=== PATIENT | female | born 1960 | race Caucasian/White ===

== ENCOUNTER → 2021-07-21 11:10 | Outpatient (CLI) | payer OTHER, SELFPAY ==
[2021-07-21 13:57] LABS: COVID19 -Nasal RAPID Negative (Negative)
== END ==
PROVIDERS: Visit Provider Family Medicine Sleep Medicine
DX: Z20.822 Contact with and (suspected) exposure to COVID-19 (principal)
CPT/HCPCS: 87635; C9803

== ENCOUNTER → 2021-07-30 10:46 | Outpatient (CLI) | payer OTHER, SELFPAY ==
[2021-07-30 12:21] LABS: COVID19 -Nasal RAPID Negative (Negative)
== END ==
PROVIDERS: Visit Provider Family Medicine Sleep Medicine
DX: Z20.822 Contact with and (suspected) exposure to COVID-19 (principal)
CPT/HCPCS: 87635; C9803

== ENCOUNTER 2021-08-01 08:30 | Day surgery (SDC) | payer OTHER, SELFPAY ==
[2021-07-25 07:38] VITALS: BMI 44.9
[2021-08-01] VITALS (16 sets, daily range): BP systolic 123–191; BP diastolic 67–103; PULSE 61–104; RESP 12–20; TEMP 36.2–37.3; O2SAT 94–99; BMI 44.9
[2021-08-01] MEDS: LACTATED RINGERS 1,000 ML 42 ML IV ×2 (08:54→12:16)
[2021-08-01] MEDS: PREGABALIN 75 MG CAPSULE PO (08:55)
[2021-08-01] MEDS: ACETAMINOPHEN 325 MG TABLET 975 MG PO ×3 (08:55→20:37)
[2021-08-01] MEDS: CELECOXIB 200 MG CAPSULE PO (08:57)
--- NOTE | 2021-08-01 09:35 | PM.HP.1 ---
History of Present Illness History of Present Illness Date Patient Seen: 08/01/21 Time Patient Seen: 09:35 Chief complaint: OPB Narrative: The patient is a 60-year-old woman with a history of right knee pain that has not responded to non operative measures. She has previously been scheduled for a total knee replacement. Her history and physical is out of date. This is an update history and physical. The patient confirms our a been no substantive changes in her history or health status. Patient History Medical History Diabetes Diverticulosis GERD (gastroesophageal reflux disease) HLD (hyperlipidemia) HTN (hypertension) BARBIE on CPAP Osteoarthritis Surgical History History of 2 sections History of bilateral tubal ligation Hx of colonoscopy Hx of tonsillectomy Family & Social History Social History: household members spouse Prior Living Arrangements House Safety & Behavioral: Feels Safe in Current Yes Environment Been Physically Hurt or No Threatened By a Person Suicidal Ideation Description None Suicide Plan Description No Plan Tobacco & Substance use: Smoking Status Never smoker alcohol intake current alcohol intake frequency a few times a week Substance Use Type does not use,other Meds Home Medications and Allergies Home Medications Medication Instructions Recorded Confirmed Type hydrochlorothiazide 25 mg tablet 25 mg PO QDAY #0 04/15/12 08/01/21 History ibuprofen 200 mg tablet 800 mg PO TID #0 04/15/12 08/01/21 History lisinopril 40 mg tablet (Zestril) 40 mg PO QDAY #0 04/15/12 08/01/21 History acetaminophen 500 mg tablet 1,000 mg PO TID 07/22/21 08/01/21 History amlodipine 2.5 mg tablet 2.5 mg PO DAILY 07/22/21 08/01/21 History atorvastatin 40 mg tablet 40 mg PO DAILY 07/22/21 08/01/21 History fexofenadine 180 mg tablet 180 mg PO DAILY 07/22/21 08/01/21 History magnesium oxide 400 mg PO DAILY 07/22/21 08/01/21 History Allergies Allergy/AdvReac Type Severity Reaction Status Date / Time aspirin AdvReac Unknown STOMACH Verified 08/01/21 08:49 HSIEH Review of Systems Review of Systems Narrative: She confirms she is in her normal state of health. Exam Vital Signs (past 8 hours): - 08/01/21 09:09 Temperature 97.7 F Pulse Rate 80 Respiratory Rate 20 Blood Pressure 191/103 H Pulse Oximetry 96 Oxygen Delivery Method Room Air Narrative Exam Narrative: The patient is lying comfortably in her hospital [facility]. Chest is clear to auscultation. Cardiac exam is regular rate and rhythm. Abdomen is soft nontender. Extremities examination for the root right knee is unchanged from her prior documentation. Assessment & Plan Assessment & Plan narrative: Right knee osteoarthritis. This has failed non operative measures and the patient is here today for right total knee replacement. The risks benefits and alternatives were reviewed with her once again. COVID-19 COVID-19 status: Negative Result date/Date tested (Pos, Neg/Pending): 07/30/21 Time Spent With Patient Critical Care time: I spent a total of [] minutes of critical care time on this patient's care today; this time is exclusive of procedural time.
--- NOTE | 2021-08-01 09:50 | PM.OP.1 ---
Operative Date/Time/Diagnoses Date of procedure: 08/01/21 Time of procedure: 12:14 Pre-op diagnosis: Right knee osteoarthritis Post-op diagnosis: same Procedure & Clinicians Procedure: Right total knee replacement Same procedure as scheduled: Yes Indications: The patient has had progressively worsening right knee pain with radiographic changes consistent with arthritis. Non-operative management has failed and the patient has requested total knee replacement. The risks, benefits and alternatives to surgery were discussed with the patient prior to proceeding. Risks discussed included, but were not limited to, failure to relieve pain, stiffness, infection, nerve damage, deep venous thrombosis, pulmonary embolism, stroke, coma, heart attack, permanent paralysis and , as well as the potential need for eventual revision of the prosthetic. Surgeon: Mahendra Paez Ceramics Technician: Laury Molina Yes if Unassisted: No Anesthesia Type: General, Spinal and Local Operative Notes Findings: Severe tricompartmental osteoarthritis with extensive erosion of cartilage and bone and an inflammatory component as well. Closure Type: primary Specimen(s): none sent Prosthetic devices, grafts, tissues, transplants, or devices: Implants used in this procedure were manufactured by the [employer] and included the BCS II Journey total knee replacement with a size 5 right Oxinium femoral component, a size 4 right non porous tibial base plate, a 15 mm cross-linked polyethylene tibial insert and a 35 mm oval Jessica II patella. Applied: implant(s) Estimated Blood Loss (mL): 25 Blood products transfused: none Tourniquet time (min): 57 Procedure in detail: The patient was seen in the pre-operative area, where the patient identified the right knee as the operative site and this was marked with my initials. The patient received pre-operative antibiotics, and was taken to the operating room and placed on the operative table in the supine position. After satisfactory anesthesia, a night time nanny out was performed. The right leg was encircled with a tourniquet about the proximal thigh, and the leg was prepared from the toes to the tourniquet with ChloroPrep in the usual fashion and draped through sterile drapes. The leg was elevated and exsanguinated with Eschmark bandage and the tourniquet inflated to 250 mmHg pressure. The knee was approached through an approximately 18 cm incision centered over the patella and carried into the knee through a medial parapatellar arthrotomy. The anterior osteophytes and soft tissues were removed. The rotational landmarks of Ryan's line and the transepicondylar axis were marked on the femur with electrocautery, and intramedullary guide holes for the femur and tibia were created. The distal femoral cut was made in 6 degrees of valgus using the intramedullary guide at the +2 cut setting due to a significant preoperative flexion contracture. The anterior, posterior and chamfer cuts were then made. The proximal tibial cut was then made using the intramedullary guide, taking 9 mm of bone off the less involved side, although this was difficult to determine due to the extensive erosion of the tibia both medially and laterally. Posterior osteophytes and soft tissues were then removed. The posterior capsule was injected with part of a mixture of 60 ml 0.25% Marcaine mixed with 20 ml Exparel and 4 mg of morphine for post-operative pain control. The remainder of this mixture was injected into the capsule and subcutaneous tissues during cement curing. The tibia was prepared with the rotation set by an extra medullary guide. Trial tibial and femoral components were then placed and the intercondylar notch cut through the femoral trial. Range of motion was 0-120 degrees with further flexion limited by the patient's obesity causing an anterior drawer on her tibia. A thicker than normal tibial insert was necessary in due to the difficulty measuring the tibial cut. A 15 mm insert was used. Stability was good throughout the range. The patella was then cut to accommodate the patellar prosthetic. There was no need for a lateral release. The trials were then removed, and the femoral hole plugged with a bone plug. The bone was prepared with pulsatile lavage, and dried with a sponge. Cement was applied and the final prosthetics placed. Excess cement was removed during and after cement curing. After confirming there was no extruded cement posteriorly, the final tibial insert was placed. The knee was copiously irrigated and the tourniquet deflated. Hemostasis was obtained. The capsule was closed with interrupted # 2 polyester suture. The subcutaneous layer was closed with 3-0 Vicryl, and the skin with a running 3-0 V-Lock suture and Dermabond. An Aquacel Ag dressing was applied and the patient was taken to recovery having tolerated the procedure well. Post-operative Condition: stable Disposition: PACU Plan for aftercare: The patient will be maintained on a standard total knee replacement protocol with weight bearing as tolerated. The patient will receive aspirin and sequential compression devices for DVT prophylaxis. The patient will be discharged home when safe for the home environment.
--- NOTE | 2021-08-01 10:11 | SUR.OPER ---
Supine on padded OR bed. Pillow under head, arms secured on padded armboards <90 degree abduction. Safety belt across torso. Non-operative leg secured with tape over blanket over lower leg. Operative leg secured in DeMayo/Alex/Nathe positioner. Foam padded brace at thigh of operative leg.
[2021-08-01] MEDS: CEFAZOLIN 2 GM/20 ML SYRINGE IV (10:40)
[2021-08-01] MEDS: TRANEXAMIC ACID 1,000 MG VIAL 1000 MG INJ ×2 (10:40→11:54)
--- NOTE | 2021-08-01 11:00 | DI.RAD.S_ITS ---
PROCEDURE: XR KNEE RT 1TO2V INDICATIONS: Postop knee arthroplasty. TECHNIQUE: 2 view(s) of the knee acquired. COMPARISON: [facility] [place], FADY, XR KNEE ARTHRITIC SERIES , 05/15/2021, 14:29. FINDINGS: Bones: Patient is status post knee joint arthroplasty. Hardware components are in expected positions. Visualized bony structures are intact. Soft tissues: Overlying postoperative changes are noted. IMPRESSION: Expected immediate postoperative appearance of right TKA. Dictated by: Enrico Adams [facility] Interpreted: Scott Olson MD on 08/01/2021 at 13:38 Transcribed by: HERMILO on 08/01/2021 at 13:38 Approved by: Scott Olson M.D. on 08/01/2021 at 17:14
[2021-08-01] MEDS: BUPIVACAINE 0.25% (PF) 60 ML, EPINEPHrine 0.3 MG INJ (11:01)
[2021-08-01] MEDS: BUPIVACAINE LIPOSOME 266 MG/20 ML VIAL INJ (11:02)
[2021-08-01] MEDS: MORPHINE 4 MG/ML INJ INJ (11:02)
[2021-08-01] MEDS: IBUPROFEN 200 MG TABLET 800 MG PO ×2 (14:39→20:37)
[2021-08-01] MEDS: hydrOXYzine pamoate 25 MG CAPSULE PO (14:39)
[2021-08-01] MEDS: LACTATED RINGERS 1,000 ML 100 ML IV (14:41)
[2021-08-01] MEDS: OXYCODONE IR 5 MG TABLET PO ×2 (14:43→20:37)
--- NOTE | 2021-08-01 16:30 | PT.IIE ---
Current Diagnoses Unilateral primary osteoarthritis, right knee (08/01/21) Surgery Performed Operation Date: 08/01/21 10:15 Actual Procedures p Total Knee Arthroplasty(Right) - Mahendra Paez MD Medical History (Last Reviewed 08/01/21 @ 09:36 by Mahendra Paez MD) Diabetes Diverticulosis GERD (gastroesophageal reflux disease) HLD (hyperlipidemia) HTN (hypertension) BARBIE on CPAP Osteoarthritis Physical Therapy Inpatient Evaluation/Re-Eval M1 PT/OT-IP Prior Functional Status Start: 08/01/21 17:34 Freq: NEEDED Status: Active Protocol: Document 08/01/21 16:30 AB (Rec: 08/01/21 17:44 AB [id number]) Medical Review Prior Functional Status Medical History Reviewed Yes Communication able to make needs known Mobility and Gait pt stated that she is independent with all mobilities and ambulation without AD Social History Household Members spouse Living Arrangements House Number of Floors (Floors) Two Floors Number of Stairs To Enter/Railing? 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 pt has a toilet safety frame pt plans to sleep on her lift chair M2 PT-IP Current Condition Start: 08/01/21 17:34 Freq: NEEDED Status: Active Protocol: Document 08/01/21 16:30 AB (Rec: 08/01/21 17:44 AB [id number]) Physical Therapy Current Condition Current Condition Evaluation Date 08/01/21 Treatment Diagnosis s/p R TKA; difficulty in walking Onset Date 08/01/21 M3 PT-IP Subjective Start: 08/01/21 17:34 Freq: NEEDED Status: Active Protocol: Document 08/01/21 16:30 AB (Rec: 08/01/21 17:44 AB [id number]) Subjective Physical Therapy Visit Type Type Initial Evaluation Visit Start Time 16:30 Visit Stop Time 17:05 Total Visit Minutes 35 Number of SYSTEM SUPPORT ANALYST Visits 0 Therapy Pain Assessment Pain When Pain Assessed At Rest Pain Present Pain Present Pain Reported Location Right Knee Intensity 5 Scale Used increases to 7-8/10 with mobility Pain Management Techniques Apply Cold,Distraction, Elevation,Modification of Treatment,Re-positioning, Timing of Activity with Medications M4 PT-IP Mobility and Gait Start: 08/01/21 17:34 Freq: NEEDED Status: Active Protocol: Document 08/01/21 16:30 AB (Rec: 08/01/21 17:44 AB [id number]) PT-Bed Mobility Assessment Sit to Supine Sit to Supine Standby Assistance PT-Transfer Assessment Sit to and From Stand Sit to and from Stand Contact Guard Assistance,1 Person Assistance Equipment Transfer Assistive Device Gait Belt,Front Wheeled Walker Orthotic/Prosthetic Devices or Brace: No Transfers Transfer Destination Bed Transfer Technique Stand Step Pivot Transfer Ability Level of Assist Minimal Assistance,1 Person Assistance,Use of Upper Extremities Comments Mobility Comments pt up on bedside commode with nurse. PT took over care. pt completed sit to stand from bedside commode CGA and was able to maintain standing balance CGA while managing brief. completed step transfer to EOB using FWW min A. pt wants to walk in the hallway. completed sit to stand from EOB CGA and ambulated ~ 100 ft using FWW min A and cues. c/ o increase pain midway ambulation with increase antalgic gait and slower pace. pt wants to go back to bed and completed sit to supine SBA. positioned pt in bed. call light and table placed within reach. ice pack provided. Gait Assessment Gait Gait Assistance Required: Minimum Assistance Distance (Feet) 100 Able to Maintain Weight Bearing Status Yes During Gait Assistive Devices Assistive Device Gait Belt,Front Wheeled Walker Orthotic/Prosthetic Devices or Brace: No Gait Deviations General Gait Pattern Antalgic,Decreased Stride Length,Decreased Feet Clearance,Step-to Gait Factors Limiting Gait Function Factors Limiting Gait Function Decreased Activity Tolerance, Decreased Strength,Limited Range of Motion,Pain,Poor Balance,Poor Safety Awareness PT-Balance Assessment Sitting Balance and Reactions Static Sitting Balance Ability Good Dynamic Sitting Balance Ability Good Standing Balance and Reactions Static Standing Balance Ability Fair Dynamic Standing Balance Ability Fair Device Used FWW M5 PT-IP Objective Assessments Start: 08/01/21 17:34 Freq: NEEDED Status: Active Protocol: Document 08/01/21 16:30 AB (Rec: 08/01/21 17:44 AB [id number]) Orientation Orientation/Cognition Level of Alertness Alert Orientation Name,Place,Situation Language Function Ability No Deficits Noted Safety Awareness Understands Safety Issues Memory Description No Deficits Noted Strength Lower Extremity Strength Assessment Right Impaired Knee 3+/5 Coordination Assessment Gross Coordination Gross Coordination WNL Sensation Assessment Sensation Gross Sensation WNL Muscle Tone Muscle Tone WNL Yes M6 PT-IP Treatment Start: 08/01/21 17:34 Freq: NEEDED Status: Active Protocol: Document 08/01/21 16:30 AB (Rec: 08/01/21 17:44 AB [id number]) Physical Therapy Treatment Education Education Provided Precautions,Weight Bearing Status,Post-Op Packet,Safety M7 PT-IP Assessment and Plan Start: 08/01/21 17:34 Freq: NEEDED Status: Active Protocol: Document 08/01/21 16:30 AB (Rec: 08/01/21 17:44 AB [email or web address]) PT Summary Assessment and Plan Potential Rehabilitation Potential Good Status of Condition at Evaluation Evolving Summary Impairments Pain,ROM,Strength,Balance, Coordination,Sensation,Tone, Cognition,Bed Mobility, Transfers,Gait,Activity Tolerance Assessment Summary pt requiring min A with mobility using FWW. c/o increase R knee pain with mobility. Pt plans to go home with spouse to assist and caregiver training will be conducted when appropriate. will also complete stair training prior to d/c. will continue to assess progress. Goals Bed Mobility Goal Independent Transfer Goal Independent,Front Wheeled Walker,Four Wheeled Walker Gait Goal Independent,Front Wheel Walker ,Four Wheel Walker Gait Distance 200 Other Goals up/down 3 steps R rail ascending SBA Days to Meet Goals 5 Frequency of Treatment Frequency Of Treatment Twice a Day Treatment Plan Physical Therapy Treatment Plan Bed Mobility Training,Transfer Training,Gait Training, Therapeutic Exercise,Balance Retraining,Post Op Education, Discharge Planning,Hot or Cold Pack,Neuromuscular Re-ed, Coordination Retraining,Manual Therapy Weight Bearing Status Weight Bearing Status Weight Bear as Tolerated Allowed Weight Bearing Amount (enter % RLE WBAT or #) (%) Recommendations To Nursing Amount of Assist Needed 1 Person Assist Discharge Recommendations PT Discharge Recommendations Home with Assistance, Outpatient PT Equipment Needed for Home Before FWW if not safe with 4WW Discharge Transportation Needs at Discharge Private Vehicle
[2021-08-01] MEDS: HYDROMORPHONE 2 MG TABLET PO ×2 (17:05→22:34)
[2021-08-01] MEDS: OXYCODONE IR 10 MG TABLET PO (17:35)
--- NOTE | 2021-08-01 19:21 | PC.NURSE ---
Pt arrived from PACU alert, pleasant and talkative. Initially reports numbnes to BLE's as the evening goes on she has almost complete sensation returned to baseline. She is able to ambulate with PT and use the BSC for x2 large voids. After PT and blocking agent wearing off she reports increasing paint to R knee to 7-9/10 pain. PRN medications given with good effect. She tolerates dinner well. VSS, afebrile on RA. She achieves 2400 on her IS. Dario wrap dressing C/D/I +CMS to toes. RT notified for assistance with CPAP machine this evening. Continuous monitoring.
[2021-08-01] MEDS: DOCUSATE 100 MG CAPSULE PO (20:37)
[2021-08-01] MEDS: ASPIRIN EC 81 MG TABLET PO (20:37)
--- NOTE | 2021-08-01 22:24 | PC.NURSE ---
Patient is alert and oriented. Breath sounds CTA with RA sat of 94%. HRR and BP elevated at 156/78; does trend high. Denied nausea. BT present and is passing flatus. Voiding on BSC; denied dysuria, frequency or urgency but has some difficulty completely emptying bladder. Able to move self in bed. Up to BSC with walker and 1 assist. Aquacel dressing covered with krista wrap to right knee is CDI. Complains of pain in right thigh and posterior knee and was medicated earlier with oxycodone and is keeping ice packs to knee for comfort. Wearing bilateral calf SCD's. Fall risk score is high and bed alarm is activated. CMS is intact except for slight numbness of anterior right foot and has difficulty lifting leg off bed.
[2021-08-02] VITALS (7 sets, daily range): BP systolic 120–158; BP diastolic 51–80; PULSE 60–71; RESP 17–18; TEMP 36.3–36.9; O2SAT 94–98
[2021-08-02] MEDS: OXYCODONE IR 10 MG TABLET PO ×4 (01:21→11:48)
[2021-08-02 05:47] LABS: Hematocrit 32.7 % (36-46); Hemoglobin 11.3 g/dL (12.0-16.0)
[2021-08-02] MEDS: IBUPROFEN 200 MG TABLET 800 MG PO ×3 (09:00→20:16)
[2021-08-02] MEDS: ATORVASTATIN 20 MG TABLET 40 MG PO (09:01)
[2021-08-02] MEDS: MAGNESIUM OXIDE 400 MG TABLET PO (09:01)
[2021-08-02] MEDS: hydroCHLOROthiazide 25 MG TABLET PO (09:01)
[2021-08-02] MEDS: lisinopriL 20 MG TABLET 40 MG PO (09:01)
[2021-08-02] MEDS: ACETAMINOPHEN 325 MG TABLET 975 MG PO ×3 (09:02→20:16)
[2021-08-02] MEDS: DOCUSATE 100 MG CAPSULE PO ×2 (09:02→20:15)
[2021-08-02] MEDS: ASPIRIN EC 81 MG TABLET PO ×2 (09:02→20:16)
[2021-08-02] MEDS: LORATADINE 10 MG TABLET PO (09:02)
[2021-08-02] MEDS: AMLODIPINE 5 MG TABLET 2.5 MG PO (09:03)
[2021-08-02] MEDS: SODIUM CHLORIDE 0.9% FLUSH 10 ML IV ×2 (09:07→20:16)
--- NOTE | 2021-08-02 09:30 | PM.PNPO.1 ---
Subjective Subjective Date Patient Seen: 08/02/21 Time Patient Seen: 09:30 Interval history: Sitting up in chair. Feeling well, some issues with pain control. Receiving dilaudid, oxycodone, vistaril. Worked with PT yesterday, but did not try steps; she has three steps to get into her home. Has at home for help. Eating and voiding without difficulty. Exam Vital Signs (past 8 hours): - 08/02/21 04:28 08/02/21 08:54 08/02/21 09:01 Temperature 98.5 F 97.3 F L Pulse Rate 71 68 65 Respiratory Rate 17 18 Blood Pressure 136/71 158/77 H 158/77 H Pulse Oximetry 96 98 Oxygen Delivery Method Room Air Oxygen Flow Rate 0 Narrative Exam Narrative: 5/5 strength in quadriceps, hamstrings, DF, PF, EHL bilaterally. Sensation to light touch intact throughout BLE. Calves soft, compressible, nontender and without palpable cords or masses. Const General: cooperative Orientation: alert, awake and oriented x3 Objective Labs Result Diagrams: 08/02/21 05:36 Labs: Laboratory Results - last 24 hr 08/02/21 05:36 Hgb 11.3 L Hct 32.7 L PFSH Medical History (Updated 08/02/21 @ 09:34 by Laury Webb PA-C) Diabetes Diverticulosis GERD (gastroesophageal reflux disease) HLD (hyperlipidemia) HTN (hypertension) Morbid (severe) obesity due to excess calories BARBIE on CPAP Osteoarthritis Surgical History (Updated 08/02/21 @ 09:34 by Laury Webb PA-C) History of 2 sections History of bilateral tubal ligation Hx of colonoscopy Hx of tonsillectomy Social History household members: spouse Smoking Status: Never smoker alcohol intake: current Assessment & Plan Post-op Assessment and plan (1) Status post total knee replacement, right: Assessment and Plan narrative: Continue PT and multimodal pain control. SCDs and aspirin for VTE prophylaxis. (2) Acute postoperative anemia due to expected blood loss: Assessment and Plan narrative: Asymptomatic; no intervention needed at this time. Postoperative Procedures: Procedures Operation Date: 08/01/21 10:15 Actual Procedure Side Surgeon p Total Knee Arthroplasty Right Mahendra Paez MD Postoperative day: 1 Postoperative status narrative: Recovery as expected. Postoperative plan narrative: Possible discharge today if pain well-controlled without use of dilaudid and patient is safe and confident with ability to climb up and down stairs.
--- NOTE | 2021-08-02 09:38 | P.DS_ITS ---
History of Present Illness History of Present Illness Date Patient Seen: 08/03/21 Time Patient Seen: 08:41 Chief complaint: OPB Narrative: Operative Date/Time/Diagnoses Date of procedure: 08/01/21 Time of procedure: 12:14 Pre-op diagnosis: Right knee osteoarthritis Post-op diagnosis: same Procedure & Clinicians Procedure: Right total knee replacement Same procedure as scheduled: Yes Indications: The patient has had progressively worsening right knee pain with radiographic changes consistent with arthritis. Non-operative management has failed and the patient has requested total knee replacement. The risks, benefits and alternatives to surgery were discussed with the patient prior to proceeding. Risks discussed included, but were not limited to, failure to relieve pain, stiffness, infection, nerve damage, deep venous thrombosis, pulmonary embolism, stroke, coma, heart attack, permanent paralysis and , as well as the potential need for eventual revision of the prosthetic. Surgeon: Mahendra Paez International Relations Professor: Laury Webb Click Yes if Unassisted: No Anesthesia Type: General, Spinal and Local Operative Notes Findings: Severe tricompartmental osteoarthritis with extensive erosion of cartilage and bone and an inflammatory component as well. Closure Type: primary Specimen(s): none sent Prosthetic devices, grafts, tissues, transplants, or devices: Implants used in this procedure were manufactured by the [employer] and included the BCS II Journey total knee replacement with a size 5 right Oxinium femoral component, a size 4 right non porous tibial base plate, a 15 mm cross-linked polyethylene tibial insert and a 35 mm oval Jessica II patella. Applied: implant(s) Estimated Blood Loss (mL): 25 Blood products transfused: none Tourniquet time (min): 57 Discharge Providers Provider Date of admission: 08/01/2021 Discharge Date: 08/03/21 Consults: 08/01/21 13:50 Consult to Discharge Planning Routine Comment: Consult to Physical Therapy Evaluate & Treat Comment: Physician Instructions: postop TKA protocol Discharge provider: Laury Webb PA-C Summary Hospital Course Discharge Diagnosis: s/p R TKA Hospital Course: Ms Rojas's hospital course was unremarkable. On POD#2 she was feeling well and wanted to go home. She was eating and voiding without difficulty. She was evaluated by PT and felt to be safe for discharge. She has her to help her at home. Exam Vital Signs (past 8 hours): - 08/02/21 04:28 08/02/21 08:54 08/02/21 09:01 Temperature 98.5 F 97.3 F L Pulse Rate 71 68 65 Respiratory Rate 17 18 Blood Pressure 136/71 158/77 H 158/77 H Pulse Oximetry 96 98 Oxygen Delivery Method Room Air Oxygen Flow Rate 0 Narrative Exam Narrative: Aquacel dressing CDI right knee. 5/5 strength in quadriceps, hamstrings, DF, PF, EHL bilaterally. Sensation to light touch intact in BLE. Calves soft, compressible, nontender and without palpable cords or masses. Const General: cooperative Orientation: alert, awake and oriented x3 Objective Labs Result Diagrams: 08/02/21 05:36 Labs: Laboratory Results - last 24 hr 08/02/21 05:36 Hgb 11.3 L Hct 32.7 L PFSH Medical History (Updated 08/02/21 @ 09:34 by Laury Webb PA-C) Diabetes Diverticulosis GERD (gastroesophageal reflux disease) HLD (hyperlipidemia) HTN (hypertension) Morbid (severe) obesity due to excess calories BARBIE on CPAP Osteoarthritis Surgical History (Updated 08/02/21 @ 09:34 by Laury Webb PA-C) History of 2 sections History of bilateral tubal ligation Hx of colonoscopy Hx of tonsillectomy Social History household members: spouse Smoking Status: Never smoker alcohol intake: current Discharge Assessment & Plan Assessment and Plan Assessment: POD# 2 s/p right total knee arthroplasty. Plan of Treatment: Discharge home. Multimodal pain management. ASA 81 mg BID for VTE prophylaxis. Outpt PT. Discharge Plan Discharge Plan Patient Disposition: Home Discharge orders & Medications Discharge Orders: Discharge (Order); Ordered 08/03/21 Ordered By: Laury Webb Prescriptions: New aspirin 81 mg Tablet,Delayed Release (Dr/Ec) 81 mg PO BID Qty: 90 0RF docusate sodium 100 mg Capsule 100 mg PO BID PRN (Reason: constipation) Qty: 60 2RF hydroxyzine pamoate 25 mg Capsule 25 mg PO Q6HR PRN (Reason: muscle spasm) Qty: 120 1RF oxycodone 5 mg Tablet 5 mg PO Q4-6H PRN (Reason: pain, severe) Qty: 60 0RF Continued hydrochlorothiazide 25 MG tablet 25 mg PO QDAY Qty: 0 0RF ibuprofen 200 MG tablet 800 mg PO TID Qty: 0 0RF lisinopril [Zestril] 40 MG tablet 40 mg PO QDAY Qty: 0 0RF atorvastatin 40 mg Tablet 40 mg PO DAILY 0RF amlodipine 2.5 mg Tablet 2.5 mg PO DAILY 0RF fexofenadine 180 mg Tablet 180 mg PO DAILY 0RF acetaminophen 500 mg Tablet 1,000 mg PO TID 0RF magnesium oxide 400 mg magnesium Tablet 400 mg PO DAILY 0RF Follow up/Referrals: Mahendra Paez MD [Physician] - As previously scheduled (Follow up with Laury Webb PA-C on 08/12/2021 @ 2:00 pm at [facility] in [place]) Diet/Activity/Treatments Diet: Diet as Tolerated Activity: WBAT RLE. Walk frequently! Cold/Heat Therapy: Ice to knee as needed for pain/swelling. Skin/Wound/Dressing Care Report to your healthcare provider any signs of infection, such as:: chills, fever, night sweats, increased pain, unusual drainage and unusual redness Dressing: May remove SHARON wrap and shower. Leave Aquacel dressing in place until follow up appointment. No bathing or otherwise soaking incision. Call office if dressing becomes saturated inside. Visit Report/Discharge Packet Instructions: DI for Knee Replacement Stand Alone Forms: Surgery Discharge Discharge Data Attending Provider: Mahendra Paez
--- NOTE | 2021-08-02 10:18 | PT-IP ANOTE ---
Attempted to see pt at 10:18, pt refused due to pain and fatigue but states she will try in PM.
--- NOTE | 2021-08-02 13:22 | CM.DANOTE ---
DC Assessment Note: Patient was admitted for a Right TKA preformed by Dr. Paez. CM met with the patient at the bedside and explained role. patient was alert and oriented x4. 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 Patient states she is independent with all ADLs and has been walking but with a 4 WW before surgery. Patients has been doing all the driving. patient stated her is getting her a Fww for when she DC home for more stability right now after surgery. Patient does live in a two story home how ever she does not need to get to the second floor at this time will only need to navigate 3 steps into the home. PCP: Tosha Chen in [facility]. I: Kassandra, self pay Plan: Dc home with no need when medically cleared with Michael providing transportation home.
--- NOTE | 2021-08-02 13:36 | PT.IPTN ---
Current Diagnoses Acute posthemorrhagic anemia (08/01/21) Unilateral primary osteoarthritis, right knee (08/01/21) Presence of right artificial knee joint (08/01/21) Surgery Performed Operation Date: 08/01/21 10:15 Actual Procedures p Total Knee Arthroplasty(Right) - Mahendra Paez MD Physical Therapy Treatment Note M2 PT-IP Current Condition Start: 08/01/21 17:34 Freq: NEEDED Status: Active Protocol: Document 08/01/21 16:30 AB (Rec: 08/01/21 17:44 AB [id number]) Physical Therapy Current Condition Current Condition Evaluation Date 08/01/21 Treatment Diagnosis s/p R TKA; difficulty in walking Onset Date 08/01/21 M3 PT-IP Subjective Start: 08/01/21 17:34 Freq: NEEDED Status: Active Protocol: Document 08/02/21 13:12 KS (Rec: 08/02/21 16:34 KS [id number]) Subjective Physical Therapy Visit Type Type Treatment Note Visit Start Time 13:12 Visit Stop Time 13:36 Total Visit Minutes 24 Number of CASH ACCOUNTING CLERK Visits 1 Physical Therapy Visit Comments Patient Comments Pt agreeable to work w/ therapy. Therapy Pain Assessment Pain When Pain Assessed At Rest Pain Present Pain Present Pain Reported M4 PT-IP Mobility and Gait Start: 08/01/21 17:34 Freq: NEEDED Status: Active Protocol: Document 08/02/21 13:12 KS (Rec: 08/02/21 16:34 KS [id number]) PT-Bed Mobility Assessment Supine to Sit Supine to Sit Contact Guard Assistance,1 Person Assistance Sit to Supine Sit to Supine Minimal Assistance,1 Person Assistance Scooting Scooting to Edge of Bed Contact Guard Assistance PT-Transfer Assessment Sit to and From Stand Sit to and from Stand Contact Guard Assistance,1 Person Assistance Equipment Transfer Assistive Device Gait Belt,Front Wheeled Walker Orthotic/Prosthetic Devices or Brace: No Transfers Transfer Destination Bed Transfer Technique Pt ambulated w/ FWW Transfer Ability Level of Assist Minimal Assistance,1 Person Assistance,Use of Upper Extremities Comments Mobility Comments Pt in bed upon arrival and agreeable to ambulation. CGA for sup<>sit and scooting OB, CGA and cues for sit<>stand w/ FWW and cues for hand placement. Pt then ambulated ~ 110 ft to stairs w/ FWW CGA and cues for quad activation and upright posture. Pt ascended/descended 3 steps step to pattern and CGA, but required bilateral hand rails after first step. Pt ambulate remaining 110 ft back to bed and required Min A for LE assistance. She then completed 1x10 ankle pumps, quad sets, heel slides, and glute sets. Left in bed w/ all needs in reach. Gait Assessment Gait Distance (Feet) 220 Able to Maintain Weight Bearing Status Yes During Gait Assistive Devices Assistive Device Gait Belt,Front Wheeled Walker Orthotic/Prosthetic Devices or Brace: No Gait Deviations General Gait Pattern Antalgic,Decreased Stride Length,Decreased Feet Clearance,Step-to Gait Factors Limiting Gait Function Factors Limiting Gait Function Decreased Activity Tolerance, Decreased Strength,Limited Range of Motion,Pain,Poor Balance,Poor Safety Awareness Comments Gait Comments Please refer to mobility section for details. Stair Climbing Assessment Evaluation Level of Assist On Stairs Contact Guard Assistance,1 Person Assistance Devices Stair Climbing Assistive Devices Left Railing,Right Railing Technique/Endurance Stair Climbing Direction Ascend and Descend Stair Climbing Technique Step to Step Number of Steps Climbed 3 Stair Climbing Set # Repetitions (reps) 1 Comments Stair Climbing Comments Pt ascended/descended 3 steps w/ CGA and was able to do first step w/ just R rail but needed L rail also for second and third steps and descending . Pt aware she needs to practice stairs again prior to d/c possibly w/ SPC in L hand ascending and R rail. PT-Balance Assessment Sitting Balance and Reactions Static Sitting Balance Ability Good Dynamic Sitting Balance Ability Good Standing Balance and Reactions Static Standing Balance Ability Fair Dynamic Standing Balance Ability Fair Device Used FWW M5 PT-IP Objective Assessments Start: 08/01/21 17:34 Freq: NEEDED Status: Active Protocol: Document 08/01/21 16:30 AB (Rec: 08/01/21 17:44 AB [id number]) Orientation Orientation/Cognition Level of Alertness Alert Orientation Name,Place,Situation Language Function Ability No Deficits Noted Safety Awareness Understands Safety Issues Memory Description No Deficits Noted Strength Lower Extremity Strength Assessment Right Impaired Knee 3+/5 Coordination Assessment Gross Coordination Gross Coordination WNL Sensation Assessment Sensation Gross Sensation WNL Muscle Tone Muscle Tone WNL Yes M6 PT-IP Treatment Start: 08/01/21 17:34 Freq: NEEDED Status: Active Protocol: Document 08/02/21 13:12 KS (Rec: 08/02/21 16:34 KS [id number]) Physical Therapy Treatment Exercises Exercises Ankle Pumps,Gluteal Sets,Quad Sets,Heel Slides,Straight Leg Raises Education Education Provided Precautions,Weight Bearing Status,Post-Op Packet,Safety M7 PT-IP Assessment and Plan Start: 08/01/21 17:34 Freq: NEEDED Status: Active Protocol: Document 08/02/21 13:12 KS (Rec: 08/02/21 16:34 KS [id number]) PT Summary Assessment and Plan Potential Rehabilitation Potential Good Status of Condition at Evaluation Evolving Summary Impairments Pain,ROM,Strength,Balance, Coordination,Sensation,Tone, Cognition,Bed Mobility, Transfers,Gait,Activity Tolerance Assessment Summary Pt showed improvement w/ mobility and activity tolerance today. CGA to Min A for bed mobility for LE assistance. She was able to ambulate ~220 ft and ascend/ descend 3 steps however required bilateral handrails and she only has R rail ascending at home. Pt aware and agreeable to more practice on stairs w/ R rail and SPC in L ascending possibly with caregiver. Goals Bed Mobility Goal Independent Transfer Goal Independent,Front Wheeled Walker,Four Wheeled Walker Gait Goal Independent,Front Wheel Walker ,Four Wheel Walker Gait Distance 200 Other Goals up/down 3 steps R rail ascending SBA Days to Meet Goals 5 Frequency of Treatment Frequency Of Treatment Twice a Day Treatment Plan Physical Therapy Treatment Plan Bed Mobility Training,Transfer Training,Gait Training, Therapeutic Exercise,Balance Retraining,Post Op Education, Discharge Planning,Hot or Cold Pack,Neuromuscular Re-ed, Coordination Retraining,Manual Therapy Weight Bearing Status Weight Bearing Status Weight Bear as Tolerated Allowed Weight Bearing Amount (enter % RLE WBAT or #) (%) Recommendations To Nursing Amount of Assist Needed 1 Person Assist Discharge Recommendations PT Discharge Recommendations Home with Assistance, Outpatient PT Equipment Needed for Home Before FWW if not safe with 4WW - pt Discharge states can acquire SPC and FWW Transportation Needs at Discharge Private Vehicle
[2021-08-02] MEDS: OXYCODONE IR 5 MG TABLET PO ×3 (14:49→21:33)
--- NOTE | 2021-08-02 23:09 | PC.NURSE ---
Patient is alert and oriented. Breath sounds diminished but CTA with RA sat of 97%. HRR. Denies nausea. BT present and is passing flatus. Denies dysuria but does get up frequently to urinate. Is able to move herself in bed. Up to BS with walker and 1 assist. Aquacel dressing to right knee is CDI; edema present in right LE but denies any tingling/numbness tonight. Still having difficulty lifting right leg off bed. Initially stated pain was well controlled at 07/10 but at 2132 requested/medicated with oxycodone for complaint of 6/10 right knee pain. Wearing bilateral calf SCD's. Fall risk score is high and bed alarm is activated.
[2021-08-03] MEDS: OXYCODONE IR 5 MG TABLET PO (02:45)
[2021-08-03 03:12] VITALS: BP 133/58; PULSE 67; RESP 20; TEMP 36.9; O2SAT 96
[2021-08-03] MEDS: OXYCODONE IR 10 MG TABLET PO ×2 (05:59→10:34)
[2021-08-03 09:30] VITALS: BP 135/50; PULSE 76; RESP 18; TEMP 36.5; O2SAT 98
[2021-08-03 10:20] VITALS: BP 135/50; PULSE 76
[2021-08-03] MEDS: lisinopriL 20 MG TABLET 40 MG PO (10:20)
[2021-08-03] MEDS: ATORVASTATIN 20 MG TABLET 40 MG PO (10:21)
[2021-08-03] MEDS: MAGNESIUM OXIDE 400 MG TABLET PO (10:21)
[2021-08-03] MEDS: IBUPROFEN 200 MG TABLET 800 MG PO (10:22)
[2021-08-03] MEDS: AMLODIPINE 5 MG TABLET 2.5 MG PO (10:23)
[2021-08-03] MEDS: ACETAMINOPHEN 325 MG TABLET 975 MG PO (10:26)
[2021-08-03] MEDS: hydroCHLOROthiazide 25 MG TABLET PO (10:27)
[2021-08-03] MEDS: LORATADINE 10 MG TABLET PO (10:27)
[2021-08-03] MEDS: DOCUSATE 100 MG CAPSULE PO (10:27)
[2021-08-03] MEDS: ASPIRIN EC 81 MG TABLET PO (10:27)
[2021-08-03] MEDS: SODIUM CHLORIDE 0.9% FLUSH 10 ML IV (10:34)
--- NOTE | 2021-08-03 11:10 | PT.IPTN ---
Current Diagnoses Acute posthemorrhagic anemia (08/01/21) Unilateral primary osteoarthritis, right knee (08/01/21) Presence of right artificial knee joint (08/01/21) Surgery Performed Operation Date: 08/01/21 10:15 Actual Procedures p Total Knee Arthroplasty(Right) - Mahendra Paez MD Physical Therapy Treatment Note M2 PT-IP Current Condition Start: 08/01/21 17:34 Freq: NEEDED Status: Active Protocol: Document 08/01/21 16:30 AB (Rec: 08/01/21 17:44 AB [id number]) Physical Therapy Current Condition Current Condition Evaluation Date 08/01/21 Treatment Diagnosis s/p R TKA; difficulty in walking Onset Date 08/01/21 M3 PT-IP Subjective Start: 08/01/21 17:34 Freq: NEEDED Status: Active Protocol: Document 08/03/21 11:10 AW (Rec: 08/03/21 12:14 AW [id number]) Subjective Physical Therapy Visit Type Type Treatment Note Visit Start Time 10:45 Visit Stop Time 11:10 Total Visit Minutes 25 Notes Pt's spouse, Michael, was present and participatd in caregiver training. Number of AIR TWIST OPERATOR Visits 0 Physical Therapy Visit Comments Patient Comments Pt agreeable to work w/ therapy. Therapy Pain Assessment Pain When Pain Assessed At Rest Pain Present Pain Present Pain Reported M4 PT-IP Mobility and Gait Start: 08/01/21 17:34 Freq: NEEDED Status: Active Protocol: Document 08/03/21 11:10 AW (Rec: 08/03/21 12:14 AW [id number]) PT-Bed Mobility Assessment Supine to Sit Supine to Sit Contact Guard Assistance,1 Person Assistance Sit to Supine Sit to Supine Minimal Assistance,1 Person Assistance Scooting Scooting to Edge of Bed Contact Guard Assistance PT-Transfer Assessment Sit to and From Stand Sit to and from Stand Standby Assistance,1 Person Assistance Equipment Transfer Assistive Device Gait Belt,Front Wheeled Walker Orthotic/Prosthetic Devices or Brace: No Transfers Transfer Destination Chair,Bedside Commode Transfer Technique Pt ambulated w/ FWW Transfer Ability Level of Assist Contact Guard Assistance,Use of Upper Extremities Comments Mobility Comments Pt was visiting with her as PT arrived. She needed CGA for supine to sit. Pt's spouse applied the gait belt and provided CGA for sit to stand. Pt ambulated with FWW CGA to the stairs and back . On return to the room, she transferred to the chair CGA. She then decided she wanted to use the commode, transferring with spouse assisting CGA with FWW. Pt was left on the commode with call light in reach and spouse in room. Gait Assessment Gait Gait Assistance Required: Contact Guard Assist Distance (Feet) 220 Able to Maintain Weight Bearing Status Yes During Gait Assistive Devices Assistive Device Gait Belt,Front Wheeled Walker Orthotic/Prosthetic Devices or Brace: No Gait Deviations General Gait Pattern Antalgic,Decreased Stride Length,Decreased Feet Clearance,Step-to Gait,Wide Based Gait Factors Limiting Gait Function Factors Limiting Gait Function Decreased Activity Tolerance, Decreased Strength,Limited Range of Motion,Pain,Poor Balance Comments Gait Comments Pt tended to lean too far forward over front of FWW but was able to correct in response to cues. Pt's spouse safely provided CGA for ambulation. Stair Climbing Assessment Evaluation Level of Assist On Stairs Contact Guard Assistance, Minimal Assistance,1 Person Assistance Devices Stair Climbing Assistive Devices Straight Cane,Right Railing Technique/Endurance Stair Climbing Direction Ascend and Descend Stair Climbing Technique Step to Step Number of Steps Climbed 3 Stair Climbing Set # Repetitions (reps) 1 Comments Stair Climbing Comments Reviewed sequencing and technique with pt and her spouse. Pt completed three steps with R rail and SPC as her spouse provided min A and PT cued spouse to watch and stabilize right knee as needed . PT-Balance Assessment Sitting Balance and Reactions Static Sitting Balance Ability Good Dynamic Sitting Balance Ability Good Standing Balance and Reactions Static Standing Balance Ability Fair Dynamic Standing Balance Ability Fair Device Used FWW M5 PT-IP Objective Assessments Start: 08/01/21 17:34 Freq: NEEDED Status: Active Protocol: Document 08/01/21 16:30 AB (Rec: 08/01/21 17:44 AB [id number]) Orientation Orientation/Cognition Level of Alertness Alert Orientation Name,Place,Situation Language Function Ability No Deficits Noted Safety Awareness Understands Safety Issues Memory Description No Deficits Noted Strength Lower Extremity Strength Assessment Right Impaired Knee 3+/5 Coordination Assessment Gross Coordination Gross Coordination WNL Sensation Assessment Sensation Gross Sensation WNL Muscle Tone Muscle Tone WNL Yes M6 PT-IP Treatment Start: 08/01/21 17:34 Freq: NEEDED Status: Active Protocol: Document 08/03/21 11:10 AW (Rec: 08/03/21 12:14 AW [id number]) Physical Therapy Treatment Exercises Exercises Ankle Pumps,Quad Sets,Passive Knee Extension Hang,Seated Knee Flexion/Extension Education Education Provided Weight Bearing Status,Safety Other Treatments Other Treatment Performed Pt's spouse participated and was able to guard and assist safely with good cues. M7 PT-IP Assessment and Plan Start: 08/01/21 17:34 Freq: NEEDED Status: Active Protocol: Document 08/03/21 11:10 AW (Rec: 08/03/21 12:14 AW [id number]) PT Summary Assessment and Plan Summary Progress Towards Goals Progressing Toward Goals Assessment Summary Pt's spouse was able to provide all necessary assist for mobility safely this date. Pt completed stair training again with unilateral rail, SPC, and min assist from spouse. Pt is safe to discharge home with spouse assist and outpatient PT once medically stable. Goals Bed Mobility Goal Independent Transfer Goal Independent,Front Wheeled Walker,Four Wheeled Walker Gait Goal Independent,Front Wheel Walker ,Four Wheel Walker Gait Distance 200 Other Goals up/down 3 steps R rail ascending SBA Days to Meet Goals 5 Frequency of Treatment Frequency Of Treatment Twice a Day Treatment Plan Physical Therapy Treatment Plan Bed Mobility Training,Transfer Training,Gait Training, Therapeutic Exercise,Balance Retraining,Post Op Education, Discharge Planning,Hot or Cold Pack,Neuromuscular Re-ed, Coordination Retraining,Manual Therapy Weight Bearing Status Weight Bearing Status Weight Bear as Tolerated Allowed Weight Bearing Amount (enter % RLE WBAT or #) (%) Recommendations To Nursing Amount of Assist Needed 1 Person Assist Discharge Recommendations PT Discharge Recommendations Home with Assistance, Outpatient PT Equipment Needed for Home Before Pt's spouse acquired SPC and Discharge FWW Transportation Needs at Discharge Private Vehicle
== END 2021-08-03 12:15 | disposition home or self-care (01) ==
LOC: OR 08:32 → AC 08:34
PROVIDERS: Referring Provider Orthopaedic Surgery; Visit Provider Orthopaedic Surgery
PROC: 0SRC0JZ Replacement of Right Knee Joint with Synthetic Substitute, Open Approach (ICD-10-PCS; CPT 27447; principal; 2021-08-01 10:15)
DX: M17.11 Unilateral primary osteoarthritis, right knee (principal); E11.9 Type 2 diabetes mellitus without complications; K21.9 Gastro-esophageal reflux disease without esophagitis; I10 Essential (primary) hypertension; G47.33 Obstructive sleep apnea (adult) (pediatric)
CPT/HCPCS: 27447; 36415; 73560; 82962; 85014; 85018; 97110; 97116; 97162; 97530; C1776; C1713; C9290; J0171; J0690; J2250; J2270; J2704; J3010